=== PATIENT | female | born 1950 | race Caucasian/White ===

== ENCOUNTER → 2023-08-18 07:18 | Outpatient (REF) | payer MEDICARE, SELFPAY | LOC: HWRAD 07:18 | PROVIDERS: ATTENDING PHYSICIAN Internal Medicine Endocrinology, Diabetes & Metabolism; FAMILY PHYSICIAN Family Medicine | DX: E11.65 Type 2 diabetes mellitus with hyperglycemia (principal); R10.13 Epigastric pain | CPT/HCPCS: 76700 ==

== ENCOUNTER → 2023-11-07 12:31 | Outpatient (REF) | payer MEDICARE, SELFPAY | LOC: WDC 12:31 | PROVIDERS: ATTENDING PHYSICIAN Family Medicine | DX: Z12.31 Encounter for screening mammogram for malignant neoplasm of breast (principal); Z87.891 Personal history of nicotine dependence | CPT/HCPCS: 71271; 77063; 77067 ==

== ENCOUNTER → 2024-03-06 06:35 | Day surgery (SDC) | payer MEDICARE, SELFPAY ==
[2024-03-06 08:08] LABS: Glucose - Point of Care 158 mg/dl (70-99)
== END ==
LOC: GI 06:35
PROVIDERS: ATTENDING PHYSICIAN Specialist; FAMILY PHYSICIAN Family Medicine
DX: K63.5 Polyp of colon (principal); D17.5 Benign lipomatous neoplasm of intra-abdominal organs; K56.2 Volvulus; D50.9 Iron deficiency anemia, unspecified
CPT/HCPCS: 45380; 88305; 82962

== ENCOUNTER → 2024-11-08 06:22 | Outpatient (REF) | payer MEDICARE, SELFPAY | LOC: WDC 06:22 | PROVIDERS: ATTENDING PHYSICIAN Family Medicine | DX: Z12.31 Encounter for screening mammogram for malignant neoplasm of breast (principal); Z87.891 Personal history of nicotine dependence | CPT/HCPCS: 71271; 76770; 77063; 77067 ==

== ENCOUNTER → 2024-11-21 10:35 | Outpatient (REF) | payer MEDICARE, SELFPAY | LOC: HWRAD 10:35 | PROVIDERS: ATTENDING PHYSICIAN Family Medicine | DX: M25.552 Pain in left hip (principal); M25.512 Pain in left shoulder | CPT/HCPCS: 73030; 73502 ==

== ENCOUNTER → 2025-01-24 07:02 | Outpatient (REF) | payer MEDICARE, SELFPAY | LOC: PAVMRI 07:02 | PROVIDERS: ATTENDING PHYSICIAN Family Medicine | DX: M25.552 Pain in left hip (principal) | CPT/HCPCS: 72195 ==

== ENCOUNTER → 2025-02-14 06:50 | Outpatient (REF) | payer MEDICARE, SELFPAY | LOC: RAD 06:50 | PROVIDERS: ATTENDING PHYSICIAN Podiatrist; FAMILY PHYSICIAN Family Medicine | DX: E11.51 Type 2 diabetes mellitus with diabetic peripheral angiopathy without gangrene (principal) | CPT/HCPCS: 93923; 93925 ==

== ENCOUNTER → 2025-03-04 08:17 | Outpatient (REF) | payer MEDICARE, SELFPAY | LOC: HWRAD 08:17 | PROVIDERS: ATTENDING PHYSICIAN Family Medicine | DX: N94.89 Other specified conditions associated with female genital organs and menstrual cycle (principal) | CPT/HCPCS: 76856 ==